=== PATIENT | female | born 1980 | race Caucasian/White ===

== ENCOUNTER → 2016-10-03 | Outpatient (CLI) | payer OTHER ==
--- NOTE | 2016-10-03 13:49 | REP ---
Clinical: Plantar fascia fibromatosis. Technique: AP, lateral, bilateral oblique views of the right and left foot. Findings: The osseous structures are intact, symmetric, and normal for age. No evidence for acute fracture dislocation. No significant overt degenerative changes are appreciated. The calcaneus appears normal bilaterally and without spurring. The underlying soft tissues are normal and without abnormal calcifications or soft tissue nodularity. Impression: Normal age appropriate bilateral foot radiographs Signed by Tao Kirkland MD 10/03/2016 01:42 P
== END ==
LOC: M ADAMS 13:12
PROVIDERS: ATTEND Physician Assistant Medical
DX: M72.2 Plantar fascial fibromatosis (principal)

== ENCOUNTER → 2018-02-28 | Outpatient (CLI) | payer OTHER | LOC: M ADAMS 14:33 | DX: S92.515A Nondisplaced fracture of proximal phalanx of left lesser toe(s), initial encounter for closed fracture (principal) | CPT/HCPCS: 73630 ==

== ENCOUNTER 2018-07-28 23:13 | Emergency (ER) | payer OTHER ==
[~2018-07-28] VITALS: Ht 165.1 cm; Wt 63.6 kg
[2018-07-29] MEDS ORDERED: KETOROLAC 30 MG/ML VIAL (J1885) IV ONE
[2018-07-29 00:20] LABS: BASO % 0.6 % (0.0-1.0); EOS # 0.1 10^3/uL (0.0-0.50); EOS % 1.4 % (0.0-3.0); HEMOGLOBIN 13.3 g/dl (12.0-15.5); LYMPH # 1.6 10^3/uL (1.5-4.5); MEAN CORPUSCULAR HEMOGLOBIN 30.9 pg (27.0-33.0); MEAN CORPUSCULAR HGB CONC 34.1 g/dl (32.0-36.5); MEAN CORPUSCULAR VOLUME 90.7 fl (80.0-96.0); MONO # 0.6 10^3/uL (0.0-0.8); MONO % 8.9 % (0.0-5.0); NEUTROPHILS # 4.8 10^3/uL (1.8-7.7); PLATELET COUNT, AUTOMATED 161 10^3/uL (150-450); WHITE BLOOD COUNT 7.2 10^3/uL (4.0-10.0)
[2018-07-29 00:42] LABS: ALT/SGPT 25 U/L (12-78); BILIRUBIN,DIRECT 0.1 MG/DL (0.0-0.2); BILIRUBIN,TOTAL 0.4 MG/DL (0.2-1.0); BLOOD UREA NITROGEN 23 MG/DL (7-18); CALCIUM LEVEL 9.1 MG/DL (8.5-10.1); CARBON DIOXIDE LEVEL 26 MEQ/L (21-32); CHLORIDE LEVEL 108 MEQ/L (98-107); CREATININE FOR GFR 0.99 MG/DL (0.55-1.30); GLOMERULAR FILTRATION RATE > 60.0 (>58); GLUCOSE, FASTING 109 MG/DL (70-100); LIPASE 241 U/L (73-393); POTASSIUM SERUM 3.4 MEQ/L (3.5-5.1); SODIUM LEVEL 142 MEQ/L (136-145); TOTAL PROTEIN 6.7 GM/DL (6.4-8.2)
[2018-07-29] MEDS ORDERED: DICY1CAP8 PO (01:05)
[2018-07-29 01:22] VITALS: BP 129/69
--- NOTE | 2018-07-29 03:07 | REP ---
Clinical: Acute abdominal pain. Technique: Upright view of the chest with supine and upright views of the abdomen and pelvis. Findings: Frontal upright view of the chest demonstrates no acute cardiopulmonary process or free air below the diaphragm to suspect pneumoperitoneum. Supine and upright views of the abdomen and pelvis demonstrate nonspecific bowel gas pattern without obstruction or perforation. No organomegaly. Calcifications in the left upper quadrant may represent calcified splenic granulomata. Skeletal structures normal for age. Impression: Nonspecific bowel gas pattern. Electronically Signed by Tao Kirkland MD 07/29/2018 02:59 A
== END 2018-07-29 01:25 | disposition home or self-care (01) ==
LOC: M ED 23:13
DX: R10.32 Left lower quadrant pain (principal); R19.7 Diarrhea, unspecified; Z88.0 Allergy status to penicillin
CPT/HCPCS: 74021; 80048; 80076; 81001; 83690; 85025; 87086; 96374; 99284; J1885

== ENCOUNTER → 2018-07-30 | Outpatient (REF) | payer OTHER ==
[~2018-07-30] MED LIST: DICY1CAP8 PO
[2018-07-30 10:49] LABS: BASO % 0.4 % (0.0-1.0); EOS # 0.1 10^3/uL (0.0-0.50); EOS % 0.9 % (0.0-3.0); HEMOGLOBIN 13.6 g/dl (12.0-15.5); LYMPH % 17.9 % (24.0-44.0); MEAN CORPUSCULAR HEMOGLOBIN 31.4 pg (27.0-33.0); MEAN CORPUSCULAR VOLUME 92.4 fl (80.0-96.0); MONO # 0.4 10^3/uL (0.0-0.8); MONO % 6.7 % (0.0-5.0); NEUTROPHILS # 4.2 10^3/uL (1.8-7.7); NEUTROPHILS % 73.7 % (36.0-66.0); PLATELET COUNT, AUTOMATED 158 10^3/uL (150-450); RED BLOOD COUNT 4.33 10^6/uL (4.00-5.40); WHITE BLOOD COUNT 5.6 10^3/uL (4.0-10.0)
[2018-07-30 11:15] LABS: ALT/SGPT 24 U/L (12-78); BILIRUBIN,TOTAL 1.3 MG/DL (0.2-1.0); BLOOD UREA NITROGEN 11 MG/DL (7-18); CALCIUM LEVEL 8.4 MG/DL (8.5-10.1); CARBON DIOXIDE LEVEL 28 MEQ/L (21-32); CHLORIDE LEVEL 110 MEQ/L (98-107); CREATININE FOR GFR 0.75 MG/DL (0.55-1.30); GLOMERULAR FILTRATION RATE > 60.0 (>58); GLUCOSE, FASTING 100 MG/DL (70-100); POTASSIUM SERUM 4.1 MEQ/L (3.5-5.1); SODIUM LEVEL 143 MEQ/L (136-145); TOTAL PROTEIN 6.9 GM/DL (6.4-8.2)
== END ==
LOC: M LAB REF 10:31
DX: R10.32 Left lower quadrant pain (principal); K92.1 Melena

== ENCOUNTER → 2018-07-30 | Outpatient (CLI) | payer OTHER ==
[~2018-07-30] MED LIST changes: +GASTROGRAFIN SOLUTION 30ML (Q9963) As Ordered ONE; +ISOVUE-370 76% 125ML VIAL (Q9967 PER ML) As Ordered ONE
--- NOTE | 2018-07-30 14:44 | REP ---
CT abdomen and pelvis with IV and oral contrast: History: Left lower quadrant pain. No comparison CT study. CT contrast dose: 100 mL of intravenous Isovue 370. CT findings: Preliminary digital aerologist radiograph demonstrates granulomatous calcifications in the spleen. Bowel gas pattern is normal. The lung bases are clear. The liver and spleen are normal in size. The spleen is otherwise homogeneous apart from the granulomatous calcifications. No focal liver lesion is seen. No adrenal lesion is observed. The pancreas is unremarkable. Kidneys enhance symmetrically and are morphologically intact. No abnormalities noted in the gallbladder. The appendix is surgically absent. No retroperitoneal mass or adenopathy is seen. The uterus has been removed. No adnexal abnormality is seen. Small bowel loops are unremarkable. There is mural thickening affecting the descending colon and to a lesser extent, the sigmoid colon consistent with enterocolitis. No mass lesion is seen. There is no evidence of diverticulosis or diverticulitis. There is no evidence of free intraperitoneal air. No abnormal fluid collection. No abdominal wall defect seen. No significant bony abnormality. Impression: 1. Mural thickening in the descending colon and sigmoid colon consistent with colitis. 2. Status post appendectomy and hysterectomy. 3. Granulomatous calcifications in the spleen. Electronically Signed by Kieran Campbell MD 07/30/2018 05:14 P
== END ==
LOC: M RAD 10:15
PROVIDERS: ATTEND Physician Assistant
DX: R10.32 Left lower quadrant pain (principal); K92.1 Melena; K52.9 Noninfective gastroenteritis and colitis, unspecified; Z90.49 Acquired absence of other specified parts of digestive tract; Z90.710 Acquired absence of both cervix and uterus; D73.89 Other diseases of spleen
CPT/HCPCS: 74177; Q9963; Q9967

== ENCOUNTER → 2018-09-26 | Outpatient (REF) | payer OTHER ==
[~2018-09-26] MED LIST changes: -GASTROGRAFIN SOLUTION 30ML (Q9963) As Ordered ONE; -ISOVUE-370 76% 125ML VIAL (Q9967 PER ML) As Ordered ONE
== END ==
LOC: M LAB REF 12:20
PROVIDERS: ATTEND Physician Assistant Medical
DX: R19.7 Diarrhea, unspecified (principal)

== ENCOUNTER 2020-01-03 10:36 | Emergency (ER) | payer OTHER ==
[~2020-01-03] VITALS: Ht 162.6 cm; Wt 69.5 kg
[2020-01-03 11:54] LABS: BASO % 0.4 % (0.0-1.0); EOS % 0.8 % (0.0-3.0); HEMATOCRIT 40.2 % (36.0-47.0); HEMOGLOBIN 13.7 g/dl (12.0-15.5); LYMPH # 1.1 10^3/uL (1.5-5.0); LYMPH % 22.5 % (24.0-44.0); MEAN CORPUSCULAR HEMOGLOBIN 31.9 pg (27.0-33.0); MEAN CORPUSCULAR HGB CONC 34.1 g/dl (32.0-36.5); MEAN CORPUSCULAR VOLUME 93.7 fl (80.0-96.0); MONO # 0.4 10^3/uL (0.0-0.8); MONO % 7.5 % (0.0-5.0); NEUTROPHILS # 3.3 10^3/uL (1.5-8.5); NEUTROPHILS % 68.2 % (36.0-66.0); PLATELET COUNT, AUTOMATED 149 10^3/uL (150-450); RED BLOOD COUNT 4.29 10^6/uL (4.00-5.40); WHITE BLOOD COUNT 4.8 10^3/uL (4.0-10.0)
[2020-01-03 12:32] LABS: BLOOD UREA NITROGEN 19 MG/DL (7-18); CARBON DIOXIDE LEVEL 28 MEQ/L (21-32); CHLORIDE LEVEL 110 MEQ/L (98-107); CK-MB VALUE MASS < 1.0 NG/ML (<3.6); CPK CREATINE PHOSPHOKINASE 64 U/L (26-192); CREATININE FOR GFR 0.77 MG/DL (0.55-1.30); GLOMERULAR FILTRATION RATE > 60.0 (>58); GLUCOSE, FASTING 105 MG/DL (70-100); MAGNESIUM LEVEL 2.1 MG/DL (1.8-2.4); MB/CK RELATIVE INDEX 1.56 (< OR =4); POTASSIUM SERUM 3.6 MEQ/L (3.5-5.1); SODIUM LEVEL 140 MEQ/L (136-145); THYROID STIMULATING HORMONE 0.702 uIU/ML (0.358-3.740); TROPONIN I < 0.02 NG/ML (< 0.10)
[2020-01-03 13:05] VITALS: BP 144/91
--- NOTE | 2020-01-20 19:11 | ECGEPIP ---
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
--- NOTE | 2020-02-08 09:28 | REP ---
PORTABLE CHEST X-RAY: SINGLE VIEW HISTORY: Chest pain. COMPARISON: 07/29/18 FINDINGS: Monitoring electrodes are seen. There are granulomatous calcifications in the right lower lobe and right infrahilar region, unchanged. The lungs are otherwise well-inflated and clear. The pleural angles are sharp. The heart is not enlarged. Pulmonary vasculature is not increased. IMPRESSION: No active disease. MTDD
== END 2020-01-03 13:07 | disposition home or self-care (01) ==
LOC: EDBD 10:36 → M ED 10:36
DX: R00.2 Palpitations (principal); R07.9 Chest pain, unspecified; Z88.0 Allergy status to penicillin

== ENCOUNTER → 2020-02-06 | Outpatient (CLI) | payer OTHER ==
--- NOTE | 2020-02-24 11:46 | REP ---
TWO-VIEW RIGHT ELBOW HISTORY: Attack by dogs with pain. TECHNIQUE: Two limited views of the right elbow are performed. FINDINGS: There is no gross fracture or dislocation. I do not see evidence of a joint effusion. There is no radiographic evidence of foreign body in the soft tissues. IMPRESSION: Essentially negative two-view right elbow series. MTDD
--- NOTE | 2020-02-24 11:47 | REP ---
RIGHT WRIST SERIES HISTORY: Attacked by dogs with pain. TECHNIQUE: Three views of the right wrist are performed. FINDINGS: There is no evidence of acute fracture, dislocation, or intrinsic bone disease. No radiopaque foreign body is seen in the soft tissues. IMPRESSION: Negative three-view right wrist series. MTDD
== END ==
LOC: M WUC 09:14
PROVIDERS: ATTEND Physician Assistant
DX: M25.521 Pain in right elbow (principal); M25.531 Pain in right wrist

== ENCOUNTER → 2020-05-30 | Outpatient (REF) | payer OTHER ==
[2020-05-30 12:57] LABS: BASO % 0.8 % (0.0-1.0); EOS # 0.1 10^3/uL (0.0-0.5); EOS % 1.9 % (0.0-3.0); HEMATOCRIT 41.8 % (36.0-47.0); HEMOGLOBIN 13.8 g/dl (12.0-15.5); LYMPH # 1.3 10^3/uL (1.5-5.0); LYMPH % 26.4 % (24.0-44.0); MEAN CORPUSCULAR HEMOGLOBIN 30.9 pg (27.0-33.0); MEAN CORPUSCULAR VOLUME 93.5 fl (80.0-96.0); MONO # 0.4 10^3/uL (0.0-0.8); MONO % 9.2 % (0.0-5.0); NEUTROPHILS # 2.9 10^3/uL (1.5-8.5); NEUTROPHILS % 61.5 % (36.0-66.0); PLATELET COUNT, AUTOMATED 162 10^3/uL (150-450); RED BLOOD COUNT 4.47 10^6/uL (4.00-5.40); WHITE BLOOD COUNT 4.8 10^3/uL (4.0-10.0)
[2020-05-30 13:25] LABS: BLOOD UREA NITROGEN 13 MG/DL (7-18); CALCIUM LEVEL 9.3 MG/DL (8.5-10.1); CARBON DIOXIDE LEVEL 26 MEQ/L (21-32); CHLORIDE LEVEL 110 MEQ/L (98-107); CREATININE FOR GFR 0.81 MG/DL (0.55-1.30); GLOMERULAR FILTRATION RATE > 60.0 (>58); GLUCOSE, FASTING 96 MG/DL (70-100); POTASSIUM SERUM 4.4 MEQ/L (3.5-5.1); SODIUM LEVEL 142 MEQ/L (136-145)
== END ==
LOC: M LABDRWAD 12:34
PROVIDERS: ATTEND Internal Medicine Cardiovascular Disease
DX: I47.1 Supraventricular tachycardia (principal); R00.2 Palpitations

== ENCOUNTER → 2020-06-23 | Outpatient (REF) | payer OTHER ==
[~2020-06-23] MED LIST changes: +CITA10TA5 PO; +METO1TAB32 PO
== END ==
LOC: M LAB REF 12:16
PROVIDERS: ATTEND Physician Assistant
DX: Z01.810 Encounter for preprocedural cardiovascular examination (principal); Z20.822 Contact with and (suspected) exposure to COVID-19

== ENCOUNTER 2020-06-28 11:22 | Day surgery (SDC) | payer OTHER ==
[~2020-06-28] VITALS: Ht 162.6 cm; Wt 71.7 kg
[~2020-06-28 11:22] MED LIST changes: +LIDOCAINE 1% MDV 20ML VIAL SQ PRN; +LIDOCAINE 2% 100MG/5ML SDV (FOR ANES.) As Ordered ONE; +LR 1,000 ML IV ONE; +MIDAZOLAM INJ 2MG/2ML VIAL (J2250 PER 1MG) As Ordered ONE; +ONDANSETRON 4MG/2ML VIAL As Ordered ONE; +VANCOMYCIN HCL 1,000 MG, VIAL MATE ADAPTER 1 EACH in D5W 250 ML IV ONE; +fentaNYL 100 MCG/2 ML INJECTION (J3010) As Ordered ONE; +propofoL 200 MG/20 ML VIAL As Ordered ONE
--- OUTSIDE RECORDS SUMMARY | 2020-06-28 11:26 | CCD | Continuity of Care Document ---
Author Author Holter/Event/TelemetryRicardo i Organization Unknown Address [address] [facility] ([place], [place]), [place] [address] Phone [phone] Care Team Providers Care Outer Diameter Grinder Name Role Phone Antonieta Reaves MD AUTM [phone] Yamilet Grissom AUTM [phone] Portillo Morales MD AUTM [phone] Problems Active Problems Provider Date Paroxysmal supraventricular tachycardia Nicholas Lynch MD Onset: 01/13/2020 Palpitations Nicholas Lynch MD Onset: 01/13/2020 Overweight Nicholas Lynch MD Onset: 01/13/2020 Dietary management surveillance Nicholas Lynch MD Onset: 01/13/2020 Social History Type Date Description Comments Sex Unknown ETOH Use Occasionally consumes alcohol Tobacco Use Start: Unknown End: Unknown Patient is a former smoker started at age 10, at most 1.5 ppd, quit at age 24 Smoking Status Reviewed: 01/13/20 Patient is a former smoker st arted at age 10, at most 1.5 ppd, quit at age 24 Exercise Type/Frequency Running 20-60 mi les weekly Exercise Limitations None Allergies, Adverse Reactions, Alerts Active Allergies Reaction Severity Comments Date Penicillin hives 03/22/2010 Medications Description No Active Medications Immunizations Description No Information Available Vital Signs Date Vital Result Comment 01/13/2020 12:18pm Weight 154.00 lb Height 64 inches 5'4" BMI (Body Mass Index) 26.4 kg/m2 Heart Rate 75 /min BP Systolic Sitting 120 mmHg Omron, adult cuff/Ra BP Diastolic Sitting 84 mmHg Omron, adult cuff/R a 03/22/2010 2:18pm Weight 160.00 lb Height 64 inches 5'4" BMI (Body Mass Index) 27.5 kg/m2 Heart Rate 78 /min Regular Respiratory Rate 16 /min BP Systolic Sitting 120 mmHg BP Diastolic Sitting 75 mmHg BP Systolic Lying Down 115 mmHg BP Diastolic Lying Down 75 mmHg BP Systolic Standing 120 mmHg Both arms BP Diastolic Standing 70 mmHg Both arms Results Test Acquired Date Facility Test Result H/L Range Note CBC without Differential 01/03/2020 [facility] - not inter faced (315)- - White Blood Count 4.8 4.0-10.0 Red Blood Count 4.29 4.00-5.40 Platelets 149 Low 150-450 Hemoglobin 13.7 Hematocrit 40.2 Procedures Date Code Description Status 01/13/2020 83277 ECG 12-Lead Completed Medical Devices Description No Information Available Encounters Type Date Location Provider Dx Diagnosis Office Visit 01/13/2020 12:30p Main Office Nicholas Lynch MD I47.1 Supraventricular tachycardia R00.2 Palpitations E66.3 Overweight Z71.3 Dietary counseling and surve illance Assessments Date Code Description Provider 04/15/2020 I47.1 Supraventricular tachycardia Hol ter/Event/Telemetry 04/15/2020 R00.2 Palpitations Holter/Event/Tel emetry 01/13/2020 I47.1 Supraventricular tachycardia Fan socorro Lynch MD 01/13/2020 R00.2 Palpitations Nicholas Lynch MD 01/13/2020 E66.3 Overweight Nicholas Lynch MD 01/13/2020 Z71.3 Dietary counseling and surveilla nce Nicholas Lynch MD Plan of Treatment Future Appointment(s):* 04/29/2020 8:00 am - ECHO at Main Office * 07/14/2020 8:15 am - Ruth Ann Ortega PA-C at Main Office 01/13/2020 - Nicholas Lynch MD* I47.1 Supraventricular tachycardia* New Xrays:* US Echocardiogram Transthoracic W Doppler And Color Flow, Scheduled: 04/29/20 * Referral:* Portillo Morales MD, Cardiology/Spec/Tech * Recommendations:* Further evaluation with an echocardiogram Doppler. 48 hour Holter monitor was ordered. Patient was referred to reinforcement maker Dr. Portillo Morales in [place] for consideration of EPS/RFA. * R00.2 Palpitations * E66.3 Overweight* Recommendations:* LOW FAT, WHOLE-FOOD, PLANT-BASED DIET - Include fruits, vegetables, intact whole grains, beans & legumes; especially green leafy vegetables, cruciferous vegetables (e.g., broccoli, kale, cauliflower, brussel sprouts, cabbage), turmeric, ground flaxseeds - Avoid animal products (meat, poultry, fish, dairy products, eggs) - Avoid processed foods (added sugar, high fructose corn syrup, oil, salt) - Low Fat (8-12% of total calories) - No liquid oils, margarine, shortening, butter, lard, mayonnaise. - No trans-fats (partially hydrogenated oils). - No alcohol - No artificial sweeteners - B12 supplement if completely vegan and not on adequate amounts of B12 fortified foods - Non-GMO preferred - Avoid artificial food colors LOW SODIUM - Target total daily sodium 7387-1727 mg /d [do not go below 2300 mg/d] - No added salt. - Rule of thumb : Strive for sodium/calorie ratio less than or equal to 1.0 EATING HABITS - Stop eating when you reach satiety. - Avoid liquid calories (eat your calories, don't drink your calories). - Avoid restaurants EXERCISE ADVICE (General exercise advice; depends on health conditions) Cardio: Walking or equivalent aerobic activity for 40-60 minutes at least 5 times a week and preferably everyday. Resistance training 20-30 minutes, at least 2-3 times per week * Z71.3 Dietary counseling and surveillance * All * New Medication:* No Active Medications - * Follow up:* Follow-up in 6 months. Functional Status Functional Condition Comment Date Status Independent with all ADL's Activ e Mental Status Description No Information Available Referrals Refer to Reason for Referral Status Appt Date Portillo Morales MD 39 yo female with PSVT; please evaluate & manage. Thanks! Sent [facility] [address] [place] [address] [address] [place] [address] [phone]
--- OUTSIDE RECORDS SUMMARY | 2020-06-28 11:26 | CCD ---
Author Author [facility] Organization [facility] Address Unknown Phone Unavailable Care Team Providers Care Physics Teacher Name Role Phone Abigail Morton Unavailable PROBLEMS Type Condition ICD9-CM Code [id number] Code Onset Dates Condition S tatus SNOMED Code Notes Problem SVT (supraventricular tachycardia) I47.1 Activ e 2404024 Problem 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.0 Active [id number] ALLERGIES Allergen (clinical drug ingredient) Drug/Non Drug Allergy do cumented on EMR Reaction Allergy Type Onset Date Status Penicillin (For Allergies Use Only) Hives Drug Allerg y Active ENCOUNTERS from 1980 to 2020-06-06 Encounter Location Date Provider Diagnosis [id number] [place] [address] May, Mar mehran Morton 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.0 ; Adjustment insomnia F51.02 and SVT (supraventricular tachycardia) I47.1 IMMUNIZATIONS No Information SOCIAL HISTORY Tobacco Use: Social History Observation Description Date Details (start date - stop date) Never Smoker Sex Assigned At : Social History Observation Description Sex Assigned At Unknown Education: Question Answer Notes Level of Education: College Audit Question Answer Notes Total Score: 1 Interpretation: Alcohol Education Language: Question Answer Notes Languages spoken: Polish Domestic Violence: Question Answer Notes Status: Sexual Hx: Question Answer Notes Had sex in the last 12 months (vaginal, oral, or anal)? Yes LMP: 2015 Have you ever had an STD? No with Men only Use protection? No Drug and Alcohol Question Answer Notes Total Score: 0 Interpretation: No problems reported Alcohol Screening: Question Answer Notes Did you have a drink containing alcohol in the past year? No Points 0 Interpretation Negative Tobacco Use: Question Answer Notes Are you a: never smoker REASON FOR REFERRAL No Information VITAL SIGNS Weight 158 lbs May, Height 64 in May, BMI 27.12 kg/m2 May, Heart Rate 91 /min May, Respiratory Rate 18 /min May, Temperature 97.3 degrees Fahrenheit May, Oximetry 98 May, Blood pressure systolic 116 mm Hg May, Blood pressure diastolic 80 mm Hg May, MEDICATIONS Medication SIG (Take, Route, Frequency, Duration) Notes Start Da te End Date Status Citalopram Hydrobromide 10 MG 1 tablet Orally Once a day for 30 day(s) May, Active PROCEDURES No Information RESULTS No Results 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 MEDICAL (GENERAL) HISTORY Type Description Date Medical History SVT - Cardiac ablation scheduled for 05/14 Medical History depression/insomnia Surgical History d & c 2012 Surgical History tonsillectomy 1986 Surgical History hysterectomy with bilateral salpingectom y and oophorectomy 2014 Hospitalization History hysterectomy 2014 Hospitalization History vaginal deliveries Goals Section No Information Health Concerns No Information MEDICAL EQUIPMENT No Information MENTAL STATUS No Information FUNCTIONAL STATUS No Information ASSESSMENTS Encounter Date Diagnosis Assessment Notes Treatment Notes Treatm ent Clinical Notes May, Mild episode of recurrent ma alona depressive disorder (ICD-10 - F33.0) Will restart Citalopram 10 mg, she has been on this in the past and done well. D/w pt risks and benefits assoc medication. May, Adjustment insomnia (ICD-10 - F51.02) monitor, will treat depression and this likely will improve. May, SVT (supraventricular tachycardia) (ICD-10 - I47 .1) Scheduled for ablation tomorrow. PLAN OF TREATMENT Medication Medication Name Sig Start Date Stop Date Citalopram Hydrobromide 10 MG 1 tablet Orally Once a day for 30 day(s) May, Treatment Notes Assessment Notes Clinical Notes Mild episode of recurrent major depressive disorder Wi ll restart Citalopram 10 mg, she has been on this in the past and done well. D/w pt risks and benefits assoc medication. Adjustment insomnia monitor, will treat depressi on and this likely will improve. SVT (supraventricular tachycardia) Scheduled for ablation to aysha. Next Appt Details 4-6 w. Reason: Provider Name:Abigail Morton, 2020-07-08 07:15:00 AM, [id number], [place], [address], Insurance Providers Payer Name Payer Address Payer Phone Insured Name Patient Relati onship to Insured Coverage Start Date Coverage End Date [facility] [address] [address] [facility] [phone] LINSEY DHALIWAL self
--- OUTSIDE RECORDS SUMMARY | 2020-06-28 11:26 | CCD | Continuity of Care Document ---
Author Organization Unknown Address Unknown Phone Unavailable Care Team Providers Care Biofuels Production Manager Name Role Phone Antonieta Reaves MD AUTM [phone] Yamilet Grissom AUTM [phone] Portillo Morales MD AUTM [phone] Problems Active Problems Provider Date Paroxysmal supraventricular [...] Result H/L Range Note CBC without Differential 05/30/2020 [facility] (315)- - White Blood Count 4.8 4.3-10.9 Red Blood Count 4.47 Low 4.70-6.20 Platelets 162 130-400 Hemoglobin 13.8 13.0-17.0 Hematocrit 41.8 39.0-50.0 CBC W/Auto Differential 05/30/2020 [facility] (315)- - Hemoglobin Blood 13.8 Hematocrit 41.8 MCV (Corpuscular Volume) 93.5 MCH (Corpuscular Hemoglobin) 30.9 MCHC (Corpuscular Hemog Conc) 33.0 RDW 11.9 Platelet Count Blood Auto CNT 162 MPV -- Neutrophils 61.5 Fluid Bands -- Fluid Lymphocytes 26.4 Monocytes 9.2 Fluid Body Eosinophils 1.9 Basophils % 0.8 Absolute Basophils 0.0 Absolute Eosinophils 0.1 Absolute Lymphocytes 1.3 Absolute Monocytes 0.4 Absolute Neutrophils Auto CNT 2.9 CBC without Differential 01/03/2020 [facility] - not inter faced (315)- - White Blood Count 4.8 4.0-10.0 Red Blood Count 4.29 4.00-5.40 Platelets 149 Low 150-450 Hemoglobin 13.7 Hematocrit 40.2 Procedures Date Code Description Status 04/15/2020 [id number] Holter Monitor MD Review And Rep ort Completed 04/15/2020 [id number] Holter Hookup,Recording,Disconne ct Completed 01/13/2020 09723 ECG 12-Lead Completed Medical Devices Description No [...] Lynch MD Plan of Treatment Future Appointment(s):* 07/14/2020 8:15 am - Ruth Ann Ortega PA-C at Main Office 01/13/2020 - Nicholas Lynch MD* I47.1 Supraventricular tachycardia* New Xrays:* US Echocardiogram Transthoracic W Doppler And Color Flow, Scheduled: 04/29/20 * Referral:* Portillo Morales MD, Cardiology/Spec/Tech * Recommendations:* Further evaluation with an echocardiogram Doppler. 48 hour Holter monitor was ordered. Patient was referred to feather baler Dr. Portillo Morales in [place] for consideration of EPS/RFA. * R00.2 Palpitations [...] LOW SODIUM - Target total daily sodium 5121-8950 mg /d [do not go below 2300 [...] PSVT; please evaluate & manage. Thanks! Sent [facility] [address] [place] [address] [address] [place] [address] [phone]
--- OUTSIDE RECORDS SUMMARY | 2020-06-28 11:26 | CCD ---
Author Author [facility] Organization [facility] Address Unknown Phone Unavailable Care Team Providers Care Insurance Agency Manager Name Role Phone Lew DAVIES MD Unavailable Unavailable ANTECOLLew MD Unavailable Unavailable ANTECOLLew MD Unavailable Unavailable ANTECOL, Lew SALEEM MD Unavailable Unavailable ANTECOLLew MD Unavailable Unavailable ANTECOL, Lew SALEEM MD Unavailable Unavailable ANTECOLLew MD Unavailable Unavailable ANTECOLLew MD Unavailable Unavailable ANTECOLLew MD Unavailable Unavailable ANTECOLLew MD Unavailable Unavailable ANTECOLLew MD Unavailable Unavailable ANTECOLLew MD Unavailable Unavailable ANTECOLLwe MD Unavailable Unavailable ANTECOLLew MD Unavailable Unavailable ANTECOLLew MD Unavailable Unavailable ANTECOLLew MD Unavailable Unavailable ANTECOLLew MD Unavailable Unavailable ANTECOLLew MD Unavailable Unavailable ANTECOLLew MD Unavailable Unavailable ANTECOLLew MD Unavailable Unavailable ANTECOLLew MD Unavailable Unavailable ANTECOLLew MD Unavailable Unavailable ANTECOLLew MD Unavailable Unavailable ANTECOLLew MD Unavailable Unavailable ANTECOLLew MD Unavailable Unavailable ANTECOL, Lew SALEEM MD Unavailable Unavailable ANTECOL, Lew SALEEM MD Unavailable Unavailable ANTECOL, Lew SALEEM MD Unavailable Unavailable ANTECOL, Lew SALEEM MD Unavailable Unavailable ANTECOL, Lew SALEEM MD Unavailable Unavailable ANTECOL, Lew SALEEM MD Unavailable Unavailable ANTECOL, Lew SALEEM MD Unavailable Unavailable ANTECOL, Lew SALEEM MD Unavailable Unavailable ANTECOL, Lew SALEEM MD Unavailable Unavailable ANTECOL, Lew SALEEM MD Unavailable Unavailable ANTECOL, Lew SALEEM MD Unavailable Unavailable ANTECOL, Lew SALEEM MD Unavailable Unavailable ANTECOL, Lew SALEEM MD Unavailable Unavailable ANTECOL, Lew SALEEM MD Unavailable Unavailable ANTECOL, Lew SALEEM MD Unavailable Unavailable ANTECOL, Lew SALEEM MD Unavailable Unavailable ANTECOL, Lew SALEEM MD Unavailable Unavailable ANTECOL, Lew SALEEM MD Unavailable Unavailable ANTECOL, Lew SALEEM MD Unavailable Unavailable ANTECOL, Lew SALEEM MD Unavailable Unavailable ANTECOL, Lew SALEEM MD Unavailable Unavailable ANTECOL, Lew SALEEM MD Unavailable Unavailable ANTECOL, Lew SALEEM MD Unavailable Unavailable ANTECOL, Lew SALEEM MD Unavailable Unavailable ANTECOL, Lew SALEEM MD Unavailable Unavailable ANTECOL, Lew SALEEM MD Unavailable Unavailable ANTECOL, Lew SALEEM MD Unavailable Unavailable ANTECOL, Lew SALEEM MD Unavailable Unavailable ANTECOL, Lew SALEEM MD Unavailable Unavailable ANTECOL, Lew SALEEM MD Unavailable Unavailable Das, M Barratt PA Unavailable Unavailable Das, M Barratt PA Unavailable Unavailable Das, M Barratt PA Unavailable Unavailable Das, M Barratt PA Unavailable Unavailable Das, M Barratt PA Unavailable Unavailable Das, M Barratt PA Unavailable Unavailable Das, M Barratt PA Unavailable Unavailable Das, M Barratt PA Unavailable Unavailable Das, M Barratt PA Unavailable Unavailable Das, M Barratt PA Unavailable Unavailable Das, M Barratt PA Unavailable Unavailable Das, M Barratt PA Unavailable Unavailable Das, M Barratt PA Unavailable Unavailable Das, M Barratt PA Unavailable Unavailable Das, M Barratt PA Unavailable Unavailable Das, M Barratt PA Unavailable Unavailable Das, M Barratt PA Unavailable Unavailable Das, M Barratt PA Unavailable Unavailable Das, M Barratt PA Unavailable Unavailable Das, M Barratt PA Unavailable Unavailable Das, M Barratt PA Unavailable Unavailable Das, M Barratt PA Unavailable Unavailable Das, M Barratt PA Unavailable Unavailable Das, M Barratt PA Unavailable Unavailable Das, M Barratt PA Unavailable Unavailable Das, M Barratt PA Unavailable Unavailable Das, M Barratt PA Unavailable Unavailable DMITRY, ANNEMARIE PA Unavailable Unavailable DMITRY, ANNEMARIE PA Unavailable Unavailable DMITRY, ANNEMARIE PA Unavailable Unavailable DMITRY, ANNEMARIE PA Unavailable Unavailable DMITRY, ANNEMARIE PA Unavailable Unavailable DMITRY, ANNEMARIE PA Unavailable Unavailable DMITRY, ANNEMARIE PA Unavailable Unavailable DMITRY, ANNEMARIE PA Unavailable Unavailable DMITRY, ANNEMARIE PA Unavailable Unavailable DMITRY, ANNEMARIE PA Unavailable Unavailable DMITRY, ANNEMAREI PA Unavailable Unavailable DMITRY, ANNEMARIE PA Unavailable Unavailable DMITRY, ANNEMARIE PA Unavailable Unavailable DMITRY, ANNEMARIE PA Unavailable Unavailable DMITRY, ANNEMARIE PA Unavailable Unavailable DMITRY, ANNEMARIE PA Unavailable Unavailable DMITRY, ANNEMARIE PA Unavailable Unavailable DMITRY, ANNEMARIE PA Unavailable Unavailable DMITRY, ANNEMARIE PA Unavailable Unavailable DMITRY, ANNEMARIE PA Unavailable Unavailable DMITRY, ANNEMARIE PA Unavailable Unavailable DMITRY, ANNEMARIE PA Unavailable Unavailable DMITRY, ANNEMARIE PA Unavailable Unavailable DMITRY, ANNEMARIE PA Unavailable Unavailable DMITRY, ANNEMARIE PA Unavailable Unavailable DMITRY, ANNEMARIE PA Unavailable Unavailable DMITRY, ANNEMARIE PA Unavailable Unavailable DMITRY, ANNEMARIE PA Unavailable Unavailable DMITRY, ANNEMARIE PA Unavailable Unavailable DMITRY, ANNEMARIE PA Unavailable Unavailable DMITRY, ANNEMARIE PA Unavailable Unavailable DMITRY, ANNEMARIE PA Unavailable Unavailable DMITRY, ANNEMARIE PA Unavailable Unavailable DMITRY, ANNEMARIE PA Unavailable Unavailable DMITRY, ANNEMARIE PA Unavailable Unavailable DMITRY, ANNEMARIE PA Unavailable Unavailable DMITRY, ANNEMARIE PA Unavailable Unavailable DMITRY, ANNEMARIE PA Unavailable Unavailable Portillo Morales MD Unavailable Unavaila Portillo Kamara MD Unavailable Unavaila Portillo Kamara MD Unavailable Unavaila Portillo Kamara MD Unavailable Unavaila Portillo Kamara MD Unavailable Unavaila Portillo Kamara MD Unavailable Unavaila Portillo Kamara MD Unavailable Unavaila Portillo Kamara MD Unavailable Unavaila Portillo Kamara MD Unavailable Unavaila Portillo Kamara MD Unavailable Unavaila Portillo Kamara MD Unavailable Unavaila ble MigeedPortillo MD Unavailable Unavaila ble MigeedPortillo MD Unavailable Unavaila ble MigeedPortillo MD Unavailable Unavaila ble MigeedPortillo MD Unavailable Unavaila ble MigeedPortillo MD Unavailable Unavaila ble MigeedPortillo MD Unavailable Unavaila ble MigeedPortillo MD Unavailable Unavaila ble MigeedPortillo MD Unavailable Unavaila ble MigeedPortillo MD Unavailable Unavaila ble MigeedPortillo MD Unavailable Unavaila ble MigeedPortillo MD Unavailable Unavaila ble MigeedPortillo MD Unavailable Unavaila ble MigeedPortillo MD Unavailable Unavaila ble MigeedPortillo MD Unavailable Unavaila ble MigeedPortillo MD Unavailable Unavaila ble MigeedPortillo MD Unavailable Unavaila ble MigeedPortillo MD Unavailable Unavaila ble MigeedPortillo MD Unavailable Unavaila ble MigeedPortillo MD Unavailable Unavaila ble MigeedPortillo MD Unavailable Unavaila ble MigeedPortillo MD Unavailable Unavaila ble MigeedPortillo MD Unavailable Unavaila ble MigeedPortillo MD Unavailable Unavaila ble MigeedPortillo MD Unavailable Unavaila ble MigeedPortillo MD Unavailable Unavaila ble MigeedPortillo MD Unavailable Unavaila ble MigeedPortillo MD Unavailable Unavaila ble MigeedPortillo MD Unavailable Unavaila ble MigeedPortillo MD Unavailable Unavaila ble MigeedPortillo MD Unavailable Unavaila ble MigeedPortillo MD Unavailable Unavaila ble MigeedPortillo MD Unavailable Unavaila ble MigeedPortillo MD Unavailable Unavaila ble Migeed, Portillo Fraga MD Unavailable Unavaila ble MigeedPortillo MD Unavailable Unavaila ble MigeedPortillo MD Unavailable Unavaila ble MigeedPortillo MD Unavailable Unavaila ble Migeed, Portillo Fraga MD Unavailable Unavaila ble Migeed, Portillo Fraga MD Unavailable Unavaila ble Migeed, Portillo Fraga MD Unavailable Unavaila ble Migeed, Portillo Fraga MD Unavailable Unavaila ble Migeed, Portillo Fraga MD Unavailable Unavaila ble Migeed, Portillo Fraga MD Unavailable Unavaila ble Migeed, Portillo Fraga MD Unavailable Unavaila ble Migeed, Portillo Fraga MD Unavailable Unavaila ble Migeed, Portillo Fraga MD Unavailable Unavaila ble Migeed, Portillo Fraga MD Unavailable Unavaila ble Migeed, Portillo Fraga MD Unavailable Unavaila ble Migeed, Portillo Fraga MD Unavailable Unavaila ble Migeed, Portillo Fraga MD Unavailable Unavaila ble Migeed, Portillo Fraga MD Unavailable Unavaila ble Migeed, Portillo Fraga MD Unavailable Unavaila ble Migeed, Portillo Fraga MD Unavailable Unavaila ble Migeed, Portillo Fraga MD Unavailable Unavaila ble MigeedPortillo MD Unavailable Unavaila ble MigeedPortillo MD Unavailable Unavaila ble Migeed, Portillo Fraga MD Unavailable Unavaila ble MigeedPortillo MD Unavailable Unavaila ble MigeedPortillo MD Unavailable Unavaila ble MigeedPortillo MD Unavailable Unavaila ble MigeedPortillo MD Unavailable Unavaila ble Migeed, Portillo Fraga MD Unavailable Unavaila ble MigeedPortillo MD Unavailable Unavaila ble Migeed, Portillo Fraga MD Unavailable Unavaila ble Migeed, Portillo Fraga MD Unavailable Unavaila ble Migeed, Portillo Fraga MD Unavailable Unavaila ble Migeed, Portillo Fraga MD Unavailable Unavaila ble Migeed, Portillo Fraga MD Unavailable Unavaila ble Migeed, Portillo Fraga MD Unavailable Unavaila ble Migeed, Portillo Fraga MD Unavailable Unavaila ble Migeed, Portillo Fraga MD Unavailable Unavaila ble Migeed, Portillo Fraga MD Unavailable Unavaila ble Migeed, Portillo Fraga MD Unavailable Unavaila ble Migeed, Portillo Fraga MD Unavailable Unavaila ble Migeed, Portillo Fraga MD Unavailable Unavaila ble ADWOA, L GRISEL PA Unavailable Unavailable ADWOA, L GRISEL PA Unavailable Unavailable ADWOA, L GRISEL PA Unavailable Unavailable ADWOA, L GRISEL PA Unavailable Unavailable ADWOA, L GRISEL PA Unavailable Unavailable ADWOA, L GRISEL PA Unavailable Unavailable ADWOA, L GRISEL PA Unavailable Unavailable ADWOA, L GRISEL PA Unavailable Unavailable ADWOA, L GRISEL PA Unavailable Unavailable ADWOA, L GRISEL PA Unavailable Unavailable ADWOA, L GRISEL PA Unavailable Unavailable ADWOA, L GRISEL PA Unavailable Unavailable Re-disclosure Warning The records that you are about to access may contain information from federally-assisted alcohol or drug abuse programs. If such information is present, then the following federally mandated warning applies: This information has been disclosed to you from records protected by federal confidentiality rules (42 CFR part 2). The federal rules prohibit you from making any further disclosure of this information unless further disclosure is expressly permitted by the written consent of the person to whom it pertains or as otherwise permitted by 42 CFR part 2. A general authorization for the release of medical or other information is NOT sufficient for this purpose. The Federal rules restrict any use of the information to criminally investigate or prosecute any alcohol or drug abuse patient.The records that you are about to access may contain highly sensitive health information, the redisclosure of which is protected by Article 27-F of the [facility] Public Health law. If you continue you may have access to information: Regarding HIV / AIDS; Provided by facilities licensed or operated by the [facility] Office of Mental Health; or Provided by the [facility] Office for People With Developmental Disabilities. If such information is present, then the following [facility] mandated warning applies: This information has been disclosed to you from confidential records which are protected by state law. State law prohibits you from making any further disclosure of this information without the specific written consent of the person to whom it pertains, or as otherwise permitted by law. Any unauthorized further disclosure in violation of state law may result in a fine or long term sentence or both. A general authorization for the release of medical or other information is NOT sufficient authorization for further disc losure. Family History Family Member Name Family Member Gender Family Member Status Date o f Status Description Data Source(s) Unknown Unknown Problem [facility] ([facility] Unknown Male Problem [facility] ([facility] () Encounters Encounter Providers Location Date Indications Data Source(s ) Office Visit Attender: GRISEL KELLY Main Office 07/2020 07:00:00 AM EST [facility] ([facility]) Outpatient Attender: Flakito Morales MDAdmitter: Flakito espino MD [email or web address] 06/03/2020 05:51:00 AM EST - 06/03/2020 02:54:00 PM EST [facility] Patient discharged. Outpatient [id number] [facility] [place] [address] 06/02/2020 12:00:00 AM EST eCW1 ([facility]) Outpatient Attender: ANNEMARIE Hodge Prima ry 04/27/2020 12:15:00 PM EST [facility] ([facility] OFFICE OUTPATIENT NEW 30 MINUTES Attender: Wes KELLY Ph ysical Therapy 02/08/2020 08:30:00 AM EDT [facility] ([facility]) Outpatient Attender: ANNEMARIE Princea ry 02/06/2020 09:00:00 AM EDT [facility] ([facility]) Outpatient Attender: Flakito Morales MD [facility] 02/04/2020 11:30:00 AM EDT [facility] ([facility]) Office Visit Attender: STIVEN DAVIES MD Main Office 01/13/2020 12: 30:00 PM EDT [facility] ([facility]) Immunizations Vaccine Date Status Description Data Source(s) Influenza Virus Vaccine, Quadrivalent (Cciiv4), Derive d From Cell 03/08/2020 02:29:00 PM EDT completed [facility] ([facility]) TB Skin test is not vaccine. 09/11/2019 07:57:00 AM EDT completed [facility] ([facility]) TB Skin test is not vaccine. 09/11/2019 12:00:00 AM EDT completed [facility] ([facility]) Medications Medication Brand Name Start Date Product Form Dose Route Admi nistrative Instructions Pharmacy Instructions Status Indications Reaction Description Data Source(s) 10 mg 06/17/2020 12:00:00 AM EST tablet 8 TAKE ONE TABLET BY MOUTH TWICE A DAY FOR 4 DAYS TAKE ONE TABLET BY MOUTH TWICE A DAY FOR 4 DAYS SOLD: 2020 [facility] 25 mg 06/04/2020 12:00:00 AM EST tablet extended release 24 hr 30 TAKE ONE TABLET BY MOUTH EVERY DAY TAKE ONE TABLET BY MOUTH EVERY DAY SOLD: 06/08/2020 [facility] isoproterenol (ISUPREL) 10 mcg/mL in sodium chloride ( NS) 0.9 % 100 mL infusion 06/03/2020 08:11:36 AM EST active Intra-Procedure, Intra-op continuous PRN, Starting Sat06/03/20 at 0811, Until Discontinued [facility] Medication administered onsite lidocaine (PF) (XYLOCAINE-MPF) 1 % injection [id number] 07:56:07 AM EST active As needed, Start ing Sat06/03/20 at 0756, Intra-Procedure [facility] Medication administered onsite 2 ML Midazolam 1 MG/ML Injection midazolam (VERSED) in jection midazolam (VERSED) injection 06/03/2020 07:38:05 AM EST active As needed, Starting Sat06/03/20 at 0738, Intra-Procedure [facility] Medication administered onsite fentaNYL Citrate (PF) (SUBLIMAZE) injection [id number] 06/03/2020 07:37:54 AM EST active As neede d, Starting Sat06/03/20 at 0737, Intra-Procedure [facility] Medication administered onsite 24 HR metoprolol succinate 25 MG Extende d Release Oral Tablet metoprolol succinate (TOPROL-XL) 25 MG 24 hr tablet metoprolol succinate (TOPROL-XL) 25 MG 24 hr tablet 06/03/2020 12:00:00 AM EST 25 mg Oral activ e Take 1 tablet (25 mg total) by mouth daily [facility] 10 mg 06/03/2020 12:00:00 AM EST tablet 30 TAKE ONE TABLET BY MOUTH EVERY DAY TAKE ONE TABLET BY MOUTH EVERY DAY SOLD: 06/04/2020 [facility] Citalopram 10 MG Oral Tablet Citalopram Hydrobromide 1 0 MG Citalopram Hydrobromide 10 MG 06/02/2020 12:00:00 AM EST 1.0 {tablet} active Citalopram Hydrobromide 10 MG [facility] PPD- TB Intradermal Test 09/11/2019 12:00:00 AM EDT completed [facility] ([facility]) Medication administered onsite PPD- TB Intradermal Test 09/11/2019 12:00:00 AM EDT completed [facility] ([facility]) Medication administered onsite Acetaminophen 325 MG / Hydrocodone Darnell trate 5 MG Oral Tablet HYDROcodone- acetaminophen (NORCO) 5-325 MG per tablet HYDROcodone-acetaminophen (NORCO) 5- 325 MG per tablet 04/08/2014 12:00:00 AM EST 1 {tbl} Oral aborted Take 1 tablet by mouth every 6 (six) hours as needed for pain Max Daily Amount: 4 tablets [facility] Metoclopramide 10 MG Oral Tablet metoclopramide (HENRIQUE N) 10 MG tablet metoclopramide (REGLAN) 10 MG tablet 10 mg Oral aborted Nausea and Vomiting Take 10 mg by mouth 2 (two) times a day [facility] Nausea and Vomiting Insurance Providers Payer name Policy type / Coverage type Policy ID Covered constitution party ID Covered constitution party's relationship to lora Policy Lora Plan Information [facility] [id number] HU2 [id number] [facility] [id number] SP [id number] UMR [id number] UMR [id number] Spo [id number] [facility] [id number] HU2 [id number] UMR O [id number] S [id number] [employer] [id number] Family Dependent [id number] [employer] [id number] Family Dependent [id number] [employer] (HMO) [id number] Family Dependent [id number] [employer] (HMO) [id number] Family Dependent [id number] [employer] (HMO) [id number] Family Dependent [id number] UMR O [id number] P [id number] [employer] (HMO) [id number] Family Dependent [id number] [employer] [id number] HU2 [id number] [employer] PPO O [id number] S [id number] [employer] [id number] HU2 [id number] [employer] [id number] Self [id number] [employer] Family Dependent [employer] [id number] Spo [id number] Problems, Conditions, and Diagnoses Code Display Name Description Problem Type Effective Dates Data Source(s) F33.0 [id number] 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 Problem 06/02/2020 12:00:00 AM EST [facility] ([facility]) I47.1 [id number] SVT (supraventricular tachycardia) Proble m 06/02/2020 12:00:00 AM EST eCW1 ([facility]) I47.1 SVT (supraventricular tachycardia) SVT (supraven tricular tachycardia) [id number] 02/18/2020 12:00:[address] [facility] [id number] Dietary management surveillance Dietary manageme nt surveillance Problem 01/13/2020 12:00:00 AM EDT [facility] ([facility]) [id number] Overweight Overweight Problem 01/13/2020 12:00:00 AM ED T [facility] ([facility]) [id number] Palpitations Palpitations Problem 01/13/2020 12:00:00 A M EDT [facility] ([facility]) [id number] Paroxysmal supraventricular tachycardia Paroxysmal supraventricular tachycardia Problem 01/13/2020 12:00:00 AM EDT [facility] ([facility]) I47.1 Supraventricular tachycardia Supraventricular tachycar barbara Diagnosis 06/03/2020 05:51:00 AM EST [facility] Surgeries/Procedures Procedure Description Date Indications Data Source(s) ECG ROUTINE ECG W/LEAST 12 LDS W/I&R ECG 12-LEAD Routine 06/03/2020 1:06 PM EST 06/03/2020 06:06:48 PM EST [facility] GLUC BLD GLUC MNTR DEV CLEARED FDA SPEC HOME USE POCT GLUCOSE Routine 06/03/2020 1:02 PM EST 06/03/2020 06:02:00 PM EST [facility] EP STUDY EP STUDY Routine 06/03/2020 8:48 AM EST SVT (supraventricular tachycardia) 06/03/2020 01:48:04 PM ES T SVT (supraventricular tachycardia) [facility] SVT (supraventricular tachycardia) XTRNL ECG < 48 HR RECORDING 04/15/2020 12:00:00 AM EST [facility] ([facility]) XTRNL ECG CONTINUOUS RHYTHM PHYS REVIEW&INTERPJ 2019 12:00:00 AM EST [facility] ([facility]) APPLICATION SHORT ARM SPLINT FOREARM-HAND STATIC 02/05 12:00:00 AM EDT [facility] ([facility]) ECG ROUTINE ECG W/LEAST 12 LDS W/I&R 01/13/2020 12:00: 00 AM EDT [facility] ([facility]) Results ID Date Data Source [id number] 06/23/2020 09:00:00 AM EST [facility] Name Value Range Interpretation Code Description Data Brittanie rce(s) Supporting Document(s) SARS coronavirus 2 RNA [Presence] in Res piratory specimen by VERNA with probe detection NEGATIVE [facility] This lab was ordered by [facility] a nd reported by [facility]. ID Date Data Source [id number] 06/23/2020 09:00:00 AM EST [facility] ([facility]) Name Value Range Interpretation Code Description Data Brittanie rce(s) Supporting Document(s) Laboratory test finding (navigational concept) Laboratory test result [facility] ([facility]) A false negative result may occur if a s pecimen is improperly collected, transported or handled. False negative results may also occur if inadequate numbers of organisms are present in the specimen. As with any molecular test, mutations within the target regions of Xpert Xpress SARS-CoV-2 could affect primer and/or probe binding resulting in failure to detect the presence of virus. This test cannot rule out diseases caused by other bacterial or viral pathogens. DISCLAIMER: Testing was performed using the [employer] SARS-CoV-2 test. This test was developed and its performance characteristics determined by [employer]. This test has not been FDA cleared or approved. This test has been authorized by FDA under an Emergency Use Authorization (EUA). This test is only authorized for the duration of time the declaration that circumstances exist justifying the authorization of the emergency use of in vitro diagnostic tests for detection of SARS-CoV-2 virus and/or diagnosis of COVID-19 infection under section 564(b)(1) of the Act, 21 U.S.C. 360bbb-3(b)(1), unless the authorization is terminated or revoked sooner. ID Date Data Source [id number] 06/03/2020 01:36:37 PM EST [facility] Name Value Range Interpretation Code Description Data Brittanie rce(s) Supporting Document(s) EKG [facility] [id number]HvMEWmCKVOIO5RpGFe jb2 [file] biAKMDAwMDAwMDQwOSAwMDAwMCBuIAowMDAwMDAwNT TkCKWtQERtDV3rYvCfLFBgSXZ5KXMnBRNmFVWogfLBWWYuLZQqLCx9UHVvVBUdSJQlKUhqKUSzWUPgZK Q2WYIgXUCwXE5fHyNzJNCyLJA3NfCsNYLnGSJnpjXQWTWxODPgLMR6WjOpOHNzGUFfDKzeUFKnQOBfCM tdXPAxFFVfQI2eUaNrJMCaASOzKCyfTOHeNKQuxvEI BCRnFKJeGRLqIpEmKOWzBPZtQRhzSYEnJBJ5AQd7KTFjNCRyCU2yJfMgVCBhCJC3XNfxSZViTKKgsvXM KTZfOXElVRafILKkFYYdIDKpPIopNSEkMQYlOAO1XSNoIIXbVR6fZqGwFMShDFUiOBCdJqJ7DeCoTrZD sSZrwBjiiyh0JOpuG8z4KIUgIXzfHP3hevDuRWKxRo zlKg5keYW7JOAzSfjZJr4Vg0GyomY5lwCtHmT2MJhtXhLcJV3K ID Date Data Source [id number] 06/03/2020 01:03:38 PM EST Lab [facility] Name Value Range Interpretation Code Description Data Brittanie rce(s) Supporting Document(s) POC NOVA GLU 95 mg/dL (70-99) Lab [facility] [place] PERFORMED BY [facility] CLIN[facility] STAFF ID Date Data Source [id number] 06/03/2020 08:52:32 AM EST [facility] Name Value Range Interpretation Code Description Data Brittanie rce(s) Supporting Document(s) &PDF [facility] WOLXKz8wUgVULkXo77/NWHjhZUTtk1QrSGooKYo8HViwELBzD4QwpGkeXNsJT9GTQMQOQ7XkUzjHI9bx hdG [file] [id number]JCTo= ID Date Data Source [id number] 06/03/2020 08:40:10 AM EST [facility] NT INFORMATIONPatient MRN Name Date of Age Gend*PT [id number] Linsey Bray 1980 39 years F HOPPT Location Admission Date/Time Visit ID Attending Provider-31 06/03/20 0551 --- Baljeet Morales MD([id number]) EPI ID CSN Admitting Provider [id number] Baljeet Portillo Morales MD([id number])Inpatient History & PhysicalRiharjinder BrayMRN:[id number]: here for SVT RFAPast Medical History:History reviewed. No pertinent past medical history.Past Surgical History:Past Surgical History:Procedure Laterality Date APPENDECTOMY EXPLORATORY LAPAROTOMY HYSTERECTOMY N/A 04/07/2014 Procedure: HYSTERECTOMY LAPAROSCOPIC TOTAL W TUBES OVARIES BILATERAL LYSIS OFADHESIONS PELVIC WASHINGS CYSTOSCOPY; Surgeon: Tao Vitale MD; Location: [facility]; Service: Gynecology; Laterality: N/A;Medications:No medications prior to admission.Allergies:PenicillinsFamily History:No family history on file.Social History:Social HistoryTobacco Use Smoking status: Former Smoker Smokeless tobacco: Never UsedSubstance Use Topics Alcohol use: Not on file Comment: socially Drug use: NoReview of Systems:Pertinent positives as mentioned in the HPI. Denies recent fever, chills, orchange in appetite. Denies unilateral weakness, numbness, slurred speech, orfacial droop. Denies any hematemesis, hematochezia, or melena. Denies nausea,vomiting, diarrhea, or abdominal pain. All other systems were reviewed and theremainder are negative.Physical Exam:Vital Signs: Temp: [98.1 F] 98.1 FHeart Rate: [83] 83Resp: [16] 16BP: (134)/(85) 134/85A 9 body area/organ physical examination was performed.General: Well-developed, well-nourished, NAD .HEENT: NC/AT, sclerae anicteric, moist mucous membranes.Neck: Supple. No thyromegaly was appreciated.Lungs: CTAB, without rales, rhonchi, or wheezes.CV: Regular rate & rhythm, no murmurs, rubs, or gallops. Normal S1/S2. TheJVP is <8 cm while sitting upright.Abd: Soft, NT, ND.Extremities: No pitting edema, cyanosis or clubbing.Skin: Warm & dry, without jaundice or bruising.Psych: A&O x3, affect appropriate.Assessment:Principal Problem: SVT (supraventricular tachycardia)Plan:1. EPS/SVT RFAProcedure was discussed with patient / family risks, benefits, andalternatives explained. Potential risks include but not limited to pain,bleeding, infection, injury to any body system or organ between the skin andheart (including the skin, subcutaneous tissue, blood vessels, abdominal organs,heart, and lungs), phrenic nerve injury and diaphragmatic paralysis, possibleneed for a heart surgery or pacemaker implantation, heart attack, stroke, oreven .Signature: Baljeet Morales, MDDate: June 03, 2020Time: 6:42 AM Name Value Range Interpretation Code Description Data Brittanie rce(s) Supporting Document(s) ID Date Data Source [id number] 05/30/2020 08:50:00 AM EST [facility] ([facility]) Name Value Range Interpretation Code Description Data Brittanie rce(s) Supporting Document(s) Hemoglobin [Mass/volume] in Blood 13.8 MEDENT ([facility]) Hematocrit [Volume Fraction] of Blood by Automated count 41.8 MEDENT ([facility]) Erythrocyte mean corpuscular volume [Entitic volume] by Automate d count 93.5 MEDENT ([facility]) Erythrocyte mean corpuscular hemoglobin concentration [Mass/volume] by Automated count 33.0 MEDENT ([facility]) Erythrocyte mean corpuscular hemoglobin [Entitic mass] by Au tomated count 30.9 MEDENT ([facility]) Platelets [#/volume] in Blood by Automated count 162 MEDENT ([facility]) Platelet mean volume [Entitic volume] in Blood by Tomasz Brownker Laboratory test result MEDENT ([employer] [facility]) Erythrocyte distribution width [Ratio] by Automated count 11.9 MEDENT ([facility]) Band form neutrophils/100 leukocytes in Body fluid by Manual count Laboratory test result MEDENT ([employer] [facility]) Neutrophils 61.5 [facility] ([facility]) Monocytes 9.2 MEDENT ([facility]) Lymphocytes/100 leukocytes in Body fluid by Manual count 26.4 MEDENT ([facility]) Fluid Body Eosinophils 1.9 MED[facility] ([facility]) Basophils [#/volume] in Blood by Automated count 0.0 MEDENT ([facility]) Basophils/100 leukocytes in Blood 0.8 [facility] ([facility]) Eosinophils [#/volume] in Blood by Automated count 0.1 [facility] ([facility]) Lymphocytes [#/volume] in Blood 1.3 [facility] ([facility]) Neutrophils [#/volume] in Blood by Automated count 2.9 [facility] ([facility]) Monocytes [#/volume] in Blood 0.4 [facility] ([facility]) ID Date Data Source [id number] 05/30/2020 08:50:00 AM EST [facility]ENT ([facility]) Name Value Range Interpretation Code Description Data Brittanie rce(s) Supporting Document(s) Platelets 162 130-400 [facility] Red Blood Count 4.47 4.70-6.20 MED[facility] ([facility]) White Blood Count 4.8 4.3-10.9 [facility] ([facility]) Hematocrit 41.8 39.0-50.0 [facility] ([facility]) Hemoglobin 13.8 13.0-17.0 [facility] ([facility]) ID Date Data Source [id number] 05/30/2020 07:35:00 AM EST [facility] Name Value Range Interpretation Code Description Data Brittanie rce(s) Supporting Document(s) SARS coronavirus 2 RNA Not Detected [facility] This lab was ordered by [facility] and reported by [facility]. ID Date Data Source [id number] 04/27/2020 12:00:00 AM EST [facility] Name Value Range Interpretation Code Description Data Brittanie rce(s) Supporting Document(s) SARS-CoV2 Rapid Antigen [facility] This lab was ordered by [facility] and reported by [facility]. ID Date Data Source [id number] 01/03/2020 10:00:00 AM EDT [facility] ([facility]) Name Value Range Interpretation Code Description Data Brittanie rce(s) Supporting Document(s) White Blood Count 4.8 4.0-10.0 [facility] ([facility]) Red Blood Count 4.29 4.00-5.40 [facility] ([facility]) Hemoglobin 13.7 [facility] ([facility]) Platelets 149 150-450 [facility] Hematocrit 40.2 [facility] ([facility]) Procedure Social History Code Duration Value Status Description Data Source(s ) Smoking 06/03/2020 12:00:00 AM EST Former smoker completed Former smoker [facility] Smoking 06/02/2020 12:00:00 AM EST Never Smoker completed Never S vee eCW1 ([facility]) Smoking 02/06/2020 12:00:00 AM EDT Patient is a former smoker completed Patient is a former smoker [facility] ([facility]) Smoking 01/13/2020 12:00:00 AM EDT Patient is a former smoker completed Patient is a former smoker [facility] ([facility]) Vital Signs ID Date Data Source UNK Name Value Range Interpretation Code Description Data Source(s) Body height 64 [in_i] 64 [in_i] [facility] ([facility]) 5'4" Body weight 155.00 [lb_av] 155.00 [lb_av] MEDEN T ([facility]) Diastolic blood pressure--sitting 72 mm[Hg] 72 mm[Hg] [facility] ([facility]) LA, large cuff Systolic blood pressure--sitting 118 mm[Hg] 118 mm[Hg] [facility] ([facility]) LA, large cuff Body mass index (BMI) [Ratio] 26.6 kg/m2 26.6 k g/m2 [facility] ([facility]) Oxygen saturation in Arterial blood by Pulse oximetry 100 % 100 % [facility] Respiratory rate 16 /min 16 /min [facility] Body temperature 36.89 Rachele 36.89 Rachele [facility] Heart rate 89 /min 89 /min [facility] Diastolic blood pressure 78 mm[Hg] 78 mm[Hg] [facility] Systolic blood pressure 126 mm[Hg] 126 mm[Hg] [facility] Body mass index (BMI) [Ratio] 26.61 kg/m2 26.61 kg/m2 [facility] Body weight 70.308 kg 70.308 kg [facility] Body height 162.6 cm 162.6 cm [facility] Diastolic blood pressure 80 mm[Hg] 80 mm[Hg] eCW1 ([facility]) Systolic blood pressure 116 mm[Hg] 116 mm[Hg] e CW1 ([facility]) Body temperature 97.3 [degF] 97.3 [degF] eCW1 ( [facility]) Respiratory rate 18 /min 18 /min eCW1 ([facility]) Heart rate 91 /min 91 /min eCW1 ([facility]) Body mass index (BMI) [Ratio] 27.12 kg/m2 27.12 kg/m2 eCW1 ([facility]) Body height 64 [in_i] 64 [in_i] eCW1 ([facility]) Body weight 158 [lb_av] 158 [lb_av] eCW1 ([facility]) Body weight 155.00 [lb_av] 155.00 [lb_av] MEDEN T ([facility]) Body temperature 100.1 [degF] 100.1 [degF] MEDE NT ([facility], [facility]) Oxygen saturation in Arterial blood by Pulse oximetry 99 % 99 % [facility] ([facility]) Respiratory rate 16 /min 16 /min MED[facility] ( [facility], [facility]) Heart rate 104 /min 104 /min MEDENT ([facility], [facility]) Body mass index (BMI) [Ratio] 26.6 kg/m2 26.6 k g/m2 MEDENT ([facility]) Body weight 155.00 [lb_av] 155.00 [lb_av] MEDEN T ([facility]) Body height 64 [in_i] 64 [in_i] MEDENT ([facility]) 5'4" Body temperature 97.1 [degF] 97.1 [degF] MEDENT ([facility]) Body mass index (BMI) [Ratio] 26.6 kg/m2 26.6 k g/m2 [facility] ([facility], [facility]) Body height 64 [in_i] 64 [in_i] MEDENT ([facility]) 5'4" Body weight 155.00 [lb_av] 155.00 [lb_av] MEDEN T ([facility]) Body temperature 97.9 [degF] 97.9 [degF] MEDENT ([facility]) Oxygen saturation in Arterial blood by Pulse oximetry 98 % 98 % [facility] ([facility]) Respiratory rate 16 /min 16 /min MEDENT ( [facility]) Heart rate 79 /min 79 /min MEDENT ([facility], [facility]) Diastolic blood pressure 74 mm[Hg] 74 mm[Hg] MEDENT ([facility]) Systolic blood pressure 138 mm[Hg] 138 mm[Hg] M EDENT ([facility]) Body weight 156.50 [lb_av] 156.50 [lb_av] MEDEN T ([facility]) Heart rate 70 /min 70 /min MEDENT ([facility]) Diastolic blood pressure 98 mm[Hg] 98 mm[Hg] MEDENT ([facility]) Systolic blood pressure 131 mm[Hg] 131 mm[Hg] [facility] Diastolic blood pressure--sitting 84 mm[Hg] 84 mm[Hg] MEDENT ([facility]) Omron, adult cuff/Ra Systolic blood pressure--sitting 120 mm[Hg] 120 mm[Hg] MEDENT ([facility]) Omron, adult cuff/Ra Heart rate 75 /min 75 /min [facility] ([facility]) Body mass index (BMI) [Ratio] 26.4 kg/m2 26.4 k g/m2 MEDENT ([facility]) Body height 64 [in_i] 64 [in_i] MEDENT ([facility]) 5'4" Body weight 154.00 [lb_av] 154.00 [lb_av] MEDEN T ([facility]) Patient Treatment Plan of Care Planned Activity Planned Date Details Description Data Source (s) 24 HR metoprolol succinate 25 MG Extended Release Oral Tablet 06/03/2020 12:00:00 AM EST [facility] Citalopram 10 MG Oral Tablet 06/02/2020 12:00:00 AM EST eCW1 ([facility]) Acetaminophen 325 MG / Hydrocodone Bitartrate 5 MG Ora l Tablet 04/08/2014 12:00:00 AM EST [facility] Metoclopramide 10 MG Oral Tablet [facility]
--- OUTSIDE RECORDS SUMMARY | 2020-06-28 11:26 | CCD | Continuity of Care Document ---
Author Author Yong ANDRES.Letha Organization Unknown Address [address] [place] [address] [place] [address] Phone [phone] Care Team Providers Care Feed Elevator Worker Name Role Phone Jaleel Co Publi AUTM [phone] [facility] [phone] Valeriano Villela MD AUTM [phone] Tegan Patten M.D. AUTM [phone] Problems Description No Information Available Social History Type Date Description Comments Sex Unknown ETOH Use Occasionally consumes alcohol Tobacco Use Start: Unknown End: Unknown Patient is a former smoker Smoking Status Reviewed: 02/06/20 Patient is a former smoker Allergies, Adverse Reactions, Alerts Active Allergies Reaction Severity Comments Date Penicillin 07/13/2018 Medications Description No Active Medications Immunizations CPT Code Status Date Vaccine Reaction Lot # [id number] Given 03/08/2020 Influenza Virus Vaccine, Quadrivalent (Cciiv4), Derived From 9 Given 09/11/2019 PPD- TB Intradermal Test PPD READ ON 5\\ -0-MM INDURATION READ BY matty Burnette 24416 Given 09/11/2019 PPD- TB Intradermal Test PPD READ ON 5\\ NEGATIVE -0-MM INDURATION READ BY MATTY BURNETTE [id number] 27808 Given 01/27/2019 Influenza Virus Vaccine, Quadrivalent (Cciiv4), Derived From Cell 59938 Given 09/02/2018 PPD- TB Intradermal Test ppd read on 4\\26\\19 -0- induration negative results read by MATTY Galarza [id number] 20371 Given 02/18/2018 Influenza Virus Vaccine, Quadrivalent (Cciiv4), Derived From 1 Given 08/02/2017 PPD- TB Intradermal Test ppd read on \\18 -0-mm induration negative reading Read by MATTY Galarza [id number] Q2039 Given 02/20/2017 Influenza Vaccin e Not Specified Administered Age 4 And Older Q2037 Given 02/14/2016 Influenza Virus Split 3 Yrs And Above For Intramuscular Use [id number] 66199 Given 05/31/2015 PPD- TB Intradermal Test -0- mm read by MATTY Galarza on \\16 [id number] Q2037 Given 02/15/2015 Influenza Virus Split 3 Yrs And Above For Intramuscular Use [id number] 98836 Given 12/17/2014 Tetanus (Td) Vaccine 7 Yrs> [id number] Vital Signs Date Vital Result Comment 04/27/2020 1:27pm Heart Rate 104 /min Respiratory Rate 16 /min O2 % BldC Oximetry 99 % Body Temperature 100.1 F Weight 155.00 lb Pain Level 0 02/06/2020 8:52am BP Systolic 138 mmHg BP Diastolic 74 mmHg Heart Rate 79 /min Respiratory Rate 16 /min O2 % BldC Oximetry 98 % Body Temperature 97.9 F Weight 155.00 lb Height 64 inches 5'4" BMI (Body Mass Index) 26.6 kg/m2 Pain Level 2 Results Description No Information Available Procedures Date Code Description Status 02/06/2020 51992 Apply Splint Short Arm Static(Fo rearm To Hand) Completed Medical Devices Description No Information Available Encounters Type Date Location Provider Dx Diagnosis Office Visit 04/27/2020 1:15p [facility] Junior Andres, P .A. R50.9 Fever, unspecified U07.1 Covid-19 Office Visit 02/06/2020 9:00a Main Office Junior Andres, P.A. M2 5.531 Pain in right wrist M25.521 Pain in right elbow W54.0xxA Bitten by dog, initial encou nter S71.131A Puncture wound w/o foreign b gabi, right thigh, init encntr Assessments Date Code Description Provider 04/27/2020 R50.9 Fever, unspecified Junior bacon, P.A. 04/27/2020 U07.1 Covid-19 Junior ramirez, P.A. 03/08/2020 Z23 Encounter for immunization MATTY Mccartney 02/06/2020 M25.531 Pain in right wrist Junior armas, P.A. 02/06/2020 M25.521 Pain in right elbow Junior armas, P.A. 02/06/2020 W54.0xxA Bitten by dog, initial encounter Alberto Waller.A. 02/06/2020 S71.131A Puncture wound witho ut foreign body, right thigh, initial encounter Junior Andres P.A. 12/05/2019 Z20.828 Contact with and (rubi spected) exposure to other viral communicable diseases MATTY Sage Plan of Treatment No Information Available Functional Status Description No Information Available Mental Status Description No Information Available Referrals Description No Information Available
--- OUTSIDE RECORDS SUMMARY | 2020-06-28 11:26 | CCD ---
Continuity of Care Document (CCD) Created on: 04/27/2020 Yong Bray External Reference #: [id number] Sex: Female Author Author Yong ANDRES.Letha Organization Unknown Address [address] [place] [address] [place] [address] Phone [phone] Care Team Providers Care Horse Riding Coach Or Instructor Name Role Phone Jaleel Co Publi AUTM [phone] [facility] [phone] Valeriano Villela MD AUTM [phone] Tegan Patten M.D. AUTM [phone] Problems Description No Information Available Social History [...] Code Status Date Vaccine Reaction Lot # [id number] Given 03/08/2020 Influenza Virus Vaccine, Quadrivalent (Cciiv4), Derived From 9 Given 09/11/2019 PPD- TB Intradermal Test PPD READ ON 5\\ -0-MM INDURATION READ BY matty Burnette 38511 Given 09/11/2019 PPD- TB Intradermal Test PPD READ ON 5\\ NEGATIVE -0-MM INDURATION READ BY MATTY BURNETTE [id number] 42822 Given 01/27/2019 Influenza Virus Vaccine, Quadrivalent (Cciiv4), Derived From Cell 47284 Given 09/02/2018 PPD- TB Intradermal Test ppd read on 4\\26\\19 -0- induration negative results read by MATTY Galarza [id number] 67635 Given 02/18/2018 Influenza Virus Vaccine, Quadrivalent (Cciiv4), Derived From 9 Given 08/02/2017 PPD- TB Intradermal Test ppd read on \\18 -0-mm induration negative reading Read by MATTY Galarza [id number] Q2039 Given 02/20/2017 Influenza Vaccin e Not Specified Administered Age 4 And Older Q2037 Given 02/14/2016 Influenza Virus Split 3 Yrs And Above For Intramuscular Use [id number] 98737 Given 05/31/2015 PPD- TB Intradermal Test -0- mm read by MATTY Galarza on \\16 910357 Q2037 Given 02/15/2015 Influenza Virus Split 3 Yrs And Above For Intramuscular Use [id number] 96294 Given 12/17/2014 Tetanus (Td) Vaccine 7 Yrs> [id number] Vital Signs Date Vital Result Comment 04/27/2020 [...] Available Procedures Date Code Description Status 02/06/2020 18591 Apply Splint Short Arm Static(Fo rearm To [...]
--- OUTSIDE RECORDS SUMMARY | 2020-06-28 11:26 | CCD | Continuity of Care Document ---
Author Author Yong ORONA PA Organization Unknown Address [address] [place] [address], [place] [address] Phone [phone] Care Team Providers Care Mining Plant Operator Name Role Phone Antonieta Reaves MD AUTM [phone] Portillo Morales MD AUTM [phone] Rocío Oconnor AUTM [phone] Problems Active Problems Provider Date Paroxysmal supraventricular [...] Available Vital Signs Date Vital Result Comment 2020 7:47am Weight 155.00 lb Home Weight 155lb yesterday Height 64 inches 5'4" BMI (Body Mass Index) 26.6 kg/m2 01/13/2020 12:18pm Weight 154.00 lb Height 64 inches 5'4" BMI (Body Mass Index) 26.4 kg/m2 Heart Rate 75 /min BP Systolic Sitting 120 mmHg Omron, adult cuff/Ra BP Diastolic Sitting 84 mmHg Omron, adult cuff/R a Results Test Acquired Date Facility Test Result [...] 40.2 Procedures Date Code Description Status 04/15/2020 15564 Holter Monitor MD Review And Rep ort Completed 04/15/2020 62794 Holter Hookup,Recording,Disconne ct Completed 01/13/2020 42792 ECG 12-Lead Completed Medical Devices Description No Information Available Encounters Type Date Location Provider Dx Diagnosis Office Visit 2020 8:00a Main Office ROBIN Finley I47 .1 Supraventricular tachycardia Office Visit 01/13/2020 12:30p Main Office Nicholas Lynch MD I47.1 Supraventricular tachycardia R00.2 Palpitations E66.3 Overweight Z71.3 Dietary counseling and surve illance Assessments Date Code Description Provider 2020 I47.1 Supraventricular tachycardia ROBIN Pack 04/15/2020 I47.1 Supraventricular tachycardia Hol ter/Event/Telemetry 04/15/2020 R00.2 Palpitations Holter/Event/Tel emetry 01/13/2020 I47.1 Supraventricular tachycardia Fan socorro Lynch MD 01/13/2020 R00.2 Palpitations Nicholas Lynch MD 01/13/2020 E66.3 Overweight Nicholas Lynch MD 01/13/2020 Z71.3 Dietary counseling and surveilla nce Nicholas Lynch MD Plan of Treatment Future Appointment(s):* 07/14/2020 8:15 am - Ruth Ann Ortega PA-C at Main Office 2020 - ROBIN Finley* I47.1 Supraventricular tachycardia * All * Follow up:* Schedule loop recorder with Dr. Lynch Incision check in 1 week Follow up as scheduled Functional Status Functional Condition Comment Date Status Independent with all ADL's Activ e Mental Status Description No Information Available Referrals Refer to Reason for Referral Status Appt Date Portillo Morales MD 39 yo female with PSVT; please evaluate & manage. Thanks! Sent [facility] [address] [place] [address] RD [address] [place] [address] [phone]
--- OUTSIDE RECORDS SUMMARY | 2020-06-28 11:26 | CCD | Continuity of Care Document ---
Author Author Yong ORONA PA Organization Unknown Address [id number] [place] [address], [place] [address] Phone [phone] Care Team Providers Care Market Gardener Name Role Phone Antonieta Reaves MD AUTM [phone] Portillo Morales MD AUTM [phone] Rocío Oconnor AUTM [phone] Problems Active Problems Provider Date Paroxysmal supraventricular [...] 5'4" BMI (Body Mass Index) 26.6 kg/m2 BP Systolic Sitting 118 mmHg LA, large cuff BP Diastolic Sitting 72 mmHg LA, large cuff 01/13/2020 12:18pm Weight 154.00 lb Height 64 inches 5'4" BMI (Body Mass Index) 26.4 kg/m2 Heart Rate 75 /min BP Systolic Sitting 120 mmHg Omron, adult cuff/Ra BP Diastolic Sitting 84 mmHg Omron, adult cuff/R a Results Test Acquired Date Facility Test Result H/L Range Note Laboratory test finding 06/23/2020 [facility] [phone] Sars Covid-19 Amplification NEGATIVE Normal Nega tive 1 CBC without Differential 05/30/2020 Patient's Cho[facility] [...] 149 Low 150-450 Hemoglobin 13.7 Hematocrit 40.2 1 A false negative result may occur if a specimen is improperly collected, transported or handled. False [...] pathogens. DISCLAIMER: Testing was performed using the [facility] SARS-CoV-2 test. This test was developed and its performance characteristics determined by [facility]. This test has not been FDA cleared [...] the authorization is terminated or revoked sooner. Procedures Date Code Description Status 04/15/2020 30145 Holter Monitor MD Review And Rep ort Completed 04/15/2020 79596 Holter Hookup,Recording,Disconne ct Completed 01/13/2020 48294 ECG 12-Lead Completed Medical Devices Description No Information Available Encounters Type Date Location Provider Dx Diagnosis Office Visit 2020 8:00a Main Office ROBIN Finley I47 .1 Supraventricular tachycardia Office Visit 01/13/2020 12:30p Main Office Nicholas Lynch MD I47.1 Supraventricular tachycardia R00.2 Palpitations E66.3 Overweight Z71.3 Dietary counseling and surve illance Assessments Date Code Description Provider 2020 I47.1 Supraventricular tachycardia Cristiano ROBIN Menjivar 04/15/2020 I47.1 Supraventricular tachycardia Hol ter/Event/Telemetry 04/15/2020 R00.2 Palpitations Holter/Event/Tel emetry 01/13/2020 I47.1 Supraventricular tachycardia Fan Lynch MD 01/13/2020 R00.2 Palpitations Nicholas Lynch MD 01/13/2020 E66.3 Overweight Nicholas Lynch MD 01/13/2020 Z71.3 Dietary counseling and surveilla nce Nicholas Lynch MD Plan of Treatment Future Appointment(s):* 07/14/2020 8:15 am - Ruth Ann Ortega PA-C at Main Office 2020 - ROBIN Finley* I47.1 Supraventricular tachycardia* Recommendations:* Will schedule patient for implantable loop recorder Consent signed, risks and benefits explained to patient * All * Follow up:* Schedule loop recorder with Dr. Lynch Incision check in 1 week Follow up as scheduled Functional Status Functional Condition Comment Date Status Independent with all ADL's Activ e Mental Status Description No Information Available Referrals Refer to Reason for Referral Status Appt Date Protillo Morales MD 39 yo female with PSVT; please evaluate & manage. Thanks! Sent [facility] [address] [place] [address] RD [address] [place] [address] [phone]
[2020-06-28] MEDS ORDERED: LIDOCAINE 1% SDV 30ML VIAL As Ordered ONE (14:24)
[2020-06-28 16:15] VITALS: BP 151/96
--- NOTE | 2020-06-28 20:26 | RO ---
OPERATIVE NOTE PREOPERATIVE DIAGNOSIS: Supraventricular tachycardia, palpitations. POSTOPERATIVE DIAGNOSIS: Supraventricular tachycardia, palpitations. FINDINGS: Supraventricular tachycardia, palpitations. PROCEDURE PERFORMED: Implantation of a [employer]onic subcutaneous cardiac rhythm monitor. SURGEON: Nicholas Lynch M.D. SUPERVISOR SPECIAL EFFECTS: None. ANESTHESIA: Lidocaine 1% local/monitored anesthetic care. SPECIMENS: None. ESTIMATED BLOOD LOSS: Less than 1 mL. BLOOD PRODUCTS REPLACED: None. DRAINS: None. COMPLICATIONS: None. PROCEDURE DESCRIPTION: The patient was prepped and draped over the sternum and left anterior chest. Lidocaine 1% was used for local anesthetic. An incision was made with a #15 blade approximately 1 cm in length at the left fourth interspace approximately one inch lateral to the left parasternal border. The guide on the insertion tool was then placed into the incision and advanced parallel to the anterior chest wall in a caudal direction. The insertion tool was rotated 180 degrees. The punch was then placed into the insertion tool and used to advance the subcutaneous cardiac rhythm into the subcutaneous tissue. The punch was removed and then the insertion tool was removed, leaving the implantable loop recorder behind in situ in the breast tissue. Next, a 4-0 Biosyn suture was applied subcuticular to approximate the skin with the free ends of the suture protruding 1 cm lateral to the ends of the incision on both sides. The suture was used to keep the incision line well approximated until after the Dermabond was applied. Two layers of Dermabond was applied. The Biosyn suture was then pulled through and removed entirely from the incision line. The patient tolerated the procedure well without any immediate complications. The subcutaneous cardiac rhythm monitor implanted was a [employer] LINQ II, model LNQ22 with serial number [id number]. The initial R wave amplitude measured 0.63 millivolts.
== END 2020-06-28 16:30 | disposition home or self-care (01) ==
LOC: M SDC 11:22
PROVIDERS: ATTEND Internal Medicine Cardiovascular Disease
DX: I47.1 Supraventricular tachycardia (principal); R00.2 Palpitations; F41.9 Anxiety disorder, unspecified; Z88.0 Allergy status to penicillin; Z79.899 Other long term (current) drug therapy
CPT/HCPCS: 33285; C1764; J2250; J2405; J3010; J3370

== ENCOUNTER → 2020-08-08 | Outpatient (REF) | payer OTHER ==
[~2020-08-08] MED LIST changes: -LIDOCAINE 1% MDV 20ML VIAL SQ PRN; -LIDOCAINE 2% 100MG/5ML SDV (FOR ANES.) As Ordered ONE; -LR 1,000 ML IV ONE; -MIDAZOLAM INJ 2MG/2ML VIAL (J2250 PER 1MG) As Ordered ONE; -ONDANSETRON 4MG/2ML VIAL As Ordered ONE; -VANCOMYCIN HCL 1,000 MG, VIAL MATE ADAPTER 1 EACH in D5W 250 ML IV ONE; -fentaNYL 100 MCG/2 ML INJECTION (J3010) As Ordered ONE; -propofoL 200 MG/20 ML VIAL As Ordered ONE
== END ==
LOC: M SFHCADAM 10:44
PROVIDERS: ATTEND Physician Assistant Medical
DX: Z01.84 Encounter for antibody response examination (principal)

== ENCOUNTER → 2020-08-18 | Outpatient (REF) | LOC: M LAB REF 12:11 | PROVIDERS: ATTEND Nurse Practitioner Family | DX: Z02.1 Encounter for pre-employment examination (principal) ==

== ENCOUNTER → 2021-11-09 | Outpatient (CLI) | payer OTHER ==
[~2021-11-09] MED LIST changes: -CITA10TA5 PO; +CITA10TA7 PO
[2021-11-09 13:34] LABS: HEMATOCRIT 45.8 % (36.0-47.0); HEMOGLOBIN 15.3 g/dl (12.0-15.5); MEAN CORPUSCULAR HEMOGLOBIN 30.8 pg (27.0-33.0); MEAN CORPUSCULAR HGB CONC 33.4 g/dl (32.0-36.5); MEAN CORPUSCULAR VOLUME 92.2 fl (80.0-96.0); PLATELET COUNT, AUTOMATED 186 10^3/uL (150-450); RED BLOOD COUNT 4.97 10^6/uL (4.00-5.40); WHITE BLOOD COUNT 5.5 10^3/uL (4.0-10.0)
[2021-11-09 14:12] LABS: ALBUMIN 4.7 GM/DL (3.2-5.2); ALT/SGPT 35 U/L (12-78); BILIRUBIN,TOTAL 0.8 MG/DL (0.2-1.0); BLOOD UREA NITROGEN 18 MG/DL (7-18); CALCIUM LEVEL 9.5 MG/DL (8.5-10.1); CARBON DIOXIDE LEVEL 31 MEQ/L (21-32); CHLORIDE LEVEL 104 MEQ/L (98-107); CREATININE FOR GFR 0.81 MG/DL (0.55-1.30); GLOMERULAR FILTRATION RATE > 60.0 (>58); GLUCOSE, FASTING 108 MG/DL (70-100); MAGNESIUM LEVEL 2.3 MG/DL (1.8-2.4); POTASSIUM SERUM 4.1 MEQ/L (3.5-5.1); SODIUM LEVEL 138 MEQ/L (136-145); THYROID STIMULATING HORMONE 0.836 uIU/ML (0.358-3.740); TOTAL PROTEIN 7.1 GM/DL (6.4-8.2)
== END ==
LOC: M ADAMS 09:15
PROVIDERS: ATTEND Physician Assistant
DX: R00.2 Palpitations (principal)

== ENCOUNTER → 2022-01-16 | Outpatient (CLI) | payer OTHER, SELFPAY | LOC: M PLAIMG 09:19 | PROVIDERS: ATTEND Podiatrist | DX: M79.671 Pain in right foot (principal) ==

== ENCOUNTER → 2022-10-24 | Outpatient (REF) | payer OTHER ==
[2022-10-24 13:19] LABS: BASO % 0.6 % (0.0-1.0); EOS # 0.1 10^3/uL (0.0-0.5); EOS % 1.5 % (0.0-3.0); HEMATOCRIT 42.9 % (36.0-47.0); HEMOGLOBIN 13.9 g/dl (12.0-15.5); LYMPH # 1.4 10^3/uL (1.5-5.0); LYMPH % 28.8 % (24.0-44.0); MEAN CORPUSCULAR HEMOGLOBIN 30.8 pg (27.0-33.0); MEAN CORPUSCULAR HGB CONC 32.4 g/dl (32.0-36.5); MEAN CORPUSCULAR VOLUME 94.9 fl (80.0-96.0); MONO # 0.4 10^3/uL (0.0-0.8); MONO % 7.7 % (2.0-8.0); NEUTROPHILS % 61.2 % (36.0-66.0); PLATELET COUNT, AUTOMATED 176 10^3/uL (150-450); RED BLOOD COUNT 4.52 10^6/uL (4.00-5.40); WHITE BLOOD COUNT 4.8 10^3/uL (4.0-10.0)
[2022-10-24 13:44] LABS: ALBUMIN 4.2 G/DL (3.2-5.2); ALKALINE PHOSPHATASE 95 U/L (46-116); ALT/SGPT 25 U/L (7.0-40); AST/SGOT 19 U/L (<34); BILIRUBIN,TOTAL 0.5 MG/DL (0.3-1.2); BLOOD UREA NITROGEN 16 MG/DL (9-23); CALCIUM LEVEL 8.7 MG/DL (8.5-10.1); CARBON DIOXIDE LEVEL 27 MMOL/L (20-31); CHLORIDE LEVEL 109 MMOL/L (98-107); CREATININE FOR GFR 0.75 MG/DL (0.55-1.30); GLOMERULAR FILTRATION RATE > 60.0 (>58); GLUCOSE, FASTING 97 MG/DL (60-100); POTASSIUM SERUM 4.5 MMOL/L (3.5-5.1); SODIUM LEVEL 139 MMOL/L (136-145); TOTAL PROTEIN 6.5 G/DL (5.7-8.2)
== END ==
LOC: M SFHCADAM 10:56
PROVIDERS: ATTEND Physician Assistant
DX: F33.0 Major depressive disorder, recurrent, mild (principal)

== ENCOUNTER → 2022-12-20 | Outpatient (CLI) | payer OTHER | LOC: M WUC 10:14 | PROVIDERS: ATTEND Nurse Practitioner Family | DX: M79.642 Pain in left hand (principal) ==

== ENCOUNTER → 2022-12-27 | Outpatient (CLI) | payer OTHER ==
[2022-12-27 12:40] LABS: BASO % 0.7 % (0.0-1.0); EOS # 0.1 10^3/uL (0.0-0.5); EOS % 2.5 % (0.0-3.0); HEMATOCRIT 41.1 % (36.0-47.0); HEMOGLOBIN 13.4 g/dl (12.0-15.5); LYMPH # 1.2 10^3/uL (1.5-5.0); LYMPH % 27.4 % (24.0-44.0); MEAN CORPUSCULAR HGB CONC 32.6 g/dl (32.0-36.5); MEAN CORPUSCULAR VOLUME 95.1 fl (80.0-96.0); MONO # 0.4 10^3/uL (0.0-0.8); NEUTROPHILS # 2.7 10^3/uL (1.5-8.5); NEUTROPHILS % 60.2 % (36.0-66.0); PLATELET COUNT, AUTOMATED 148 10^3/uL (150-450); RED BLOOD COUNT 4.32 10^6/uL (4.00-5.40); WHITE BLOOD COUNT 4.4 10^3/uL (4.0-10.0)
[2022-12-27 13:08] LABS: ALKALINE PHOSPHATASE 98 U/L (46-116); ALT/SGPT 22 U/L (7.0-40); AST/SGOT 15 U/L (<34); BILIRUBIN,TOTAL 0.4 MG/DL (0.3-1.2); BLOOD UREA NITROGEN 14 MG/DL (9-23); CALCIUM LEVEL 8.9 MG/DL (8.5-10.1); CARBON DIOXIDE LEVEL 29 MMOL/L (20-31); CHLORIDE LEVEL 107 MMOL/L (98-107); CHOLESTEROL LEVEL 176 MG/DL (<200); CHOLESTEROL RISK RATIO 3.51 (<5); CREATININE FOR GFR 0.84 MG/DL (0.55-1.30); GLOMERULAR FILTRATION RATE > 60.0 (>58); GLUCOSE, FASTING 103 MG/DL (60-100); HDL CHOLESTEROL 50.1 MG/DL (>40); LDL CHOLESTEROL 106.1 MG/DL (<100); NON-HDL-C 125.9 MG/DL; POTASSIUM SERUM 4.4 MMOL/L (3.5-5.1); SODIUM LEVEL 141 MMOL/L (136-145); TOTAL PROTEIN 6.5 G/DL (5.7-8.2); TRIGLYCERIDES LEVEL 99 MG/DL (<150)
[2022-12-27 13:13] LABS: TOTAL 25(OH) VITAMIN D 30.6 NG/ML (20.0-100.0)
== END ==
LOC: M WUC 09:58
PROVIDERS: ATTEND Physician Assistant Medical
DX: Z13.220 Encounter for screening for lipoid disorders (principal); Z13.0 Encounter for screening for diseases of the blood and blood-forming organs and certain disorders involving the immune mechanism

== ENCOUNTER → 2023-07-24 | Outpatient (CLI) | payer OTHER ==
[~2023-07-24] MED LIST changes: +GASTROGRAFIN SOLUTION 30ML ONE; +ISOVUE-370 76% 100ML VIAL ONE
== END ==
LOC: M PLAIMG 08:18
PROVIDERS: ATTEND Physician Assistant Medical
DX: R10.84 Generalized abdominal pain (principal); K59.09 Other constipation; K76.0 Fatty (change of) liver, not elsewhere classified; D73.89 Other diseases of spleen; J84.10 Pulmonary fibrosis, unspecified
CPT/HCPCS: 74177; Q9963; Q9967

== ENCOUNTER → 2023-12-02 | Outpatient (REF) | payer OTHER ==
[~2023-12-02] MED LIST changes: -GASTROGRAFIN SOLUTION 30ML ONE; -ISOVUE-370 76% 100ML VIAL ONE
== END ==
LOC: M LAB REF 12:30
PROVIDERS: ATTEND Student in an Organized Health Care Education/Training Program
DX: J06.9 Acute upper respiratory infection, unspecified (principal)

== ENCOUNTER 2024-03-17 08:10 | Day surgery (SDC) | payer OTHER ==
[~2024-03-17] VITALS: Ht 162.6 cm; Wt 74.4 kg
[~2024-03-17 08:10] MED LIST changes: +AMIT24CA7 PO; +EFFE150C3 PO; +HYDR-3363 PO; +NS 250 ML IV ONE; +TRAZ-189 PO
[2024-03-17] MEDS ORDERED: propofoL 200 MG/20 ML VIAL As Ordered ONE (09:36)
[2024-03-17 10:03] VITALS: TEMP 98.7
[2024-03-17 10:19] VITALS: BP 111/74; O2SAT 100
== END 2024-03-17 10:28 | disposition home or self-care (01) ==
LOC: M OPP 08:10
PROVIDERS: ATTEND Internal Medicine Gastroenterology
DX: K58.1 Irritable bowel syndrome with constipation (principal); K64.8 Other hemorrhoids; Z90.49 Acquired absence of other specified parts of digestive tract; Z90.710 Acquired absence of both cervix and uterus; Z90.89 Acquired absence of other organs; Z79.899 Other long term (current) drug therapy; Z88.0 Allergy status to penicillin; Z87.891 Personal history of nicotine dependence; Z80.0 Family history of malignant neoplasm of digestive organs

== ENCOUNTER → 2025-01-29 | Outpatient (CLI) | payer OTHER ==
[~2025-01-29] MED LIST changes: -AMIT24CA7 PO; +LUBI24CA32 PO; -NS 250 ML IV ONE
== END ==
LOC: M WUC 10:33
PROVIDERS: ATTEND Student in an Organized Health Care Education/Training Program
DX: M79.671 Pain in right foot (principal)

== ENCOUNTER → 2025-04-06 | Outpatient (REF) | payer OTHER ==
[2025-04-06 15:02] LABS: IRON (FE) 94.0 UG/DL (50-170); PERCENT SATURATION 29.0 % (13.2-45.0)
[2025-04-06 15:04] LABS: VITAMIN B12 LEVEL 532.0 PG/ML (211-911)
== END ==
LOC: M LAB REF 14:25
PROVIDERS: ATTEND Internal Medicine
DX: D64.9 Anemia, unspecified (principal); R74.01 Elevation of levels of liver transaminase levels

== ENCOUNTER → 2025-04-29 | Outpatient (CLI) | payer OTHER | LOC: M PLAIMG 10:25 | PROVIDERS: ATTEND Internal Medicine | DX: R55 Syncope and collapse (principal) ==